=== PATIENT | female | born 1985 | race African-American/Black ===

== ENCOUNTER 2016-12-09 23:40 | Inpatient (IN) | payer MEDICAID, OTHER ==
[~2016-12-09] VITALS: Ht 160 cm; Wt 70.6 kg
[~2016-12-09 23:40] MED LIST: FLEX10TA PO; IBUP600T26 PO; Z.0.NO CURRENT MEDS
[2016-12-09 23:44] VITALS: BP 157/100; PULSE 83; RESP 14; TEMP 97.6; O2SAT 98
[2016-12-10] VITALS (9 sets, daily range): BP systolic 125–167; BP diastolic 62–99; PULSE 63–83; RESP 18; TEMP 97.9–98.4; O2SAT 97–100
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
[2016-12-10] MEDS ORDERED: SODIUM CHLORIDE 0.9% FLUSH 5 ML FLUSH IVF PRN (02:00)
--- NOTE | 2016-12-10 02:29 | RADRPT ---
EXAM DATE/TIME: 12/10/2016 02:06 [facility] COMPARISON: No previous studies available for comparison. INDICATIONS : Shortness of breath with chest pain earlier which resolved itself. MEDICAL HISTORY : None. SURGICAL HISTORY : None. ENCOUNTER: Initial ACUITY: 1 day PAIN SCORE: 0/10 LOCATION: Bilateral chest FINDINGS: A single view of the chest demonstrates the lungs to be symmetrically aerated without evidence of mas s, infiltrate or effusion. No evidence of pneumothorax. The cardiomediastinal contours are unremark able. Osseous structures are intact. CONCLUSION: The lungs are clear. Mele Hassan MD on December 10, 2016 at 2:27 Board Certified Radiologist. This report was verified electronically.
[2016-12-10 03:08] LABS: BETA HCG QUANT LESS THAN 1 MIU/ML (0-5); CREATINE KINASE 104 U/L (26-192)
[2016-12-10 03:15] LABS: ANION GAP 9 MEQ/L (5-15); BICARBONATE 24.3 MEQ/L (21.0-32.0); BLOOD UREA NITROGEN 8 MG/DL (7-18); CHLORIDE 110 MEQ/L (98-107); GLOMERULAR FILTRATION RATE 72 ML/MIN (>89); POTASSIUM 3.7 MEQ/L (3.5-5.1); SODIUM (NA) 143 MEQ/L (136-145)
[2016-12-10 03:20] LABS: CKMB LESS THAN 0.5 NG/ML (0.5-3.6)
[2016-12-10 03:25] LABS: APTT (PATIENT) 23.1 SEC (24.3-30.1); PROTHROMBIN TIME - PATIENT 10.6 SEC (9.8-11.6)
[2016-12-10 03:29] LABS: AUTOMATED NEUTROPHIL # 2.5 TH/MM3 (1.8-7.7); BASOPHIL % 0.5 % (0.0-2.0); EOSINOPHIL # 0.1 TH/MM3 (0-0.4); EOSINOPHIL % 1.6 % (0.0-4.0); HEMATOCRIT 33.6 % (35.0-46.0); HEMO FLAGS DIFF FINAL; LYMPH % 29.3 % (9.0-44.0); LYMPHOCYTE # 1.2 TH/MM3 (1.0-4.8); MEAN CELL VOLUME 84.3 FL (80.0-100.0); MEAN CORPUSCULAR HEMOGLOBIN 28.9 PG (27.0-34.0); MEAN CORPUSCULAR HGB CONC 34.3 % (32.0-36.0); MONO % 6.4 % (0.0-8.0); NEUT % 62.2 % (16.0-70.0); PLATELET COUNT 265 TH/MM3 (150-450); RED BLOOD COUNT 3.98 MIL/MM3 (4.00-5.30); RED CELL DISTRIBUTION WIDTH 14.6 % (11.6-17.2)
[2016-12-10] MEDS ORDERED: IOHEXOL 350 MG/ML 10 ML VIAL (for RAD DIAG) IV ONE (05:02)
--- NOTE | 2016-12-10 05:11 | RADRPT ---
EXAM DATE/TIME: 12/10/2016 04:50 [facility] COMPARISON: No previous studies available for comparison. INDICATIONS : Chest pain and elevated d-dimer; rule out pulmonary embolus. IV CONTRAST: 65 cc Omnipaque 350 (iohexol) IV RADIATION DOSE: 12.76 CTDIvol (mGy) MEDICAL HISTORY : None SURGICAL HISTORY : None. ENCOUNTER: Initial ACUITY: 1 day PAIN SCALE: 7/10 LOCATION: chest TECHNIQUE: Volumetric scanning of the chest was performed using a pulmonary embolism protocol MIP images were re constructed. Using automated exposure control and adjustment of the mA and/or kV according to patien t size, radiation dose was kept as low as reasonably achievable to obtain optimal diagnostic quality images. FINDINGS: PULMONARY ARTERIES: Abnormal. There are multiple filling defects confluent in the right interlobar pulmonary artery exte nding into 3 segmental pulmonary arteries. No filling defects seen in the main pulmonary artery, lef t or right pulmonary artery, are in the subsegmental arteries of the left lung. LUNGS: There is a focal area of opacity in the posterior lateral left lower lung in the costophrenic angle m easuring 2.2 x 1.0 cm. No focal opacities in the right lung. PLEURAE: There is no pleural thickening or pleural effusion. MEDIASTINUM: There is good visualization of the great vessels of the middle mediastinum. No evidence of mediastin al or hilar adenopathy/mass. CONCLUSION: 1. Study is positive for pulmonary embolism in the right interlobar artery extending into 3 subsegmen letty arteries. 2. 2 cm opacity in the posterolateral left costophrenic angle without associated pleural effusion sug gests possible infiltrate. Recommend followup CT scan in one month to evaluate for persistence or re solution. Mele Hassan MD on December 10, 2016 at 5:06 Board Certified Radiologist. This report was verified electronically.
[2016-12-10] MEDS ORDERED: ENOXAPARIN SODIUM 80 MG/0.8 ML SYRINGE SQ ONE (05:30)
[2016-12-10] MEDS ORDERED: SODIUM CHLOR 0.9% 1000 ML INJ 1,000 ML IV ONE (05:45)
[2016-12-10] MEDS ORDERED: ACETAMINOPHEN 325 MG TAB PO PRN (05:45)
[2016-12-10] MEDS ORDERED: SODIUM CHLORIDE 0.9% FLUSH 5 ML FLUSH FLUSH PRN (05:45)
[2016-12-10] MEDS ORDERED: ACETAMINOPHEN/HYDROcodone 325 MG/10 MG TAB PO PRN (05:45)
[2016-12-10] MEDS ORDERED: ONDANSETRON HCL 4 MG/2 ML VIAL IVP PRN (05:45)
[2016-12-10] MEDS ORDERED: BISACODYL 10 MG SUPP PR PRN (05:45)
[2016-12-10] MEDS ORDERED: RESP: ALBUTEROL 2.5 MG/IPRATROPIUM 0.5 MG NEB (PRN) NEB (05:45)
[2016-12-10] MEDS ORDERED: ACETAMINOPHEN/HYDROcodone 325 MG/5 MG TAB PO PRN (05:45)
[2016-12-10] MEDS: cefTRIAXone INJ 1,000 MG in SODIUM CHLORIDE 0.9% INJ 100 ML IV SCH (05:52)
[2016-12-10] MEDS: AZITHROMYCIN INJ 500 MG in SODIUM CHLOR 0.9% 250 ML INJ 250 ML IV SCH (07:02)
[2016-12-10] MEDS: SODIUM CHLORIDE 0.9% FLUSH 5 ML FLUSH FLUSH SCH ×2 (09:00→19:48)
[2016-12-10] MEDS: BUDESONIDE-FORMOTEROL 160/4.5 MCG INHALER INH SCH ×2 (09:00→20:57)
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
--- NOTE | 2016-12-10 14:13 | EKG ---
Date Performed: 12/10/2016 Time Performed: 00:25:56 PTAGE: 31 years EKG: SINUS BRADYCARDIA WITH SHORT FL INTERVAL BORDERLINE ECG NO PREVIOUS TRACING DOCTOR: Ronal Almonte Interpretating Date/Time 12/10/2016 14:11:40
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
[2016-12-10] MEDS: ENOXAPARIN SODIUM 80 MG/0.8 ML SYRINGE SQ SCH (18:27)
[2016-12-11] VITALS: BP 136/67; PULSE 77; RESP 18; TEMP 98.1; O2SAT 99
[2016-12-11 04:00] VITALS: BP 141/77; PULSE 61; RESP 16; TEMP 97.8; O2SAT 100
[2016-12-11] MEDS: cefTRIAXone INJ 1,000 MG in SODIUM CHLORIDE 0.9% INJ 100 ML IV SCH (05:31)
[2016-12-11] MEDS: ENOXAPARIN SODIUM 80 MG/0.8 ML SYRINGE SQ SCH (05:31)
[2016-12-11] MEDS: AZITHROMYCIN INJ 500 MG in SODIUM CHLOR 0.9% 250 ML INJ 250 ML IV SCH (05:31)
[2016-12-11 08:00] VITALS: PULSE 74
[2016-12-11 08:06] VITALS: BP 126/58; PULSE 83; RESP 18; TEMP 98.3; O2SAT 98
[2016-12-11 08:22] LABS: AUTOMATED NEUTROPHIL # 1.5 TH/MM3 (1.8-7.7); BASOPHIL % 0.7 % (0.0-2.0); EOSINOPHIL # 0.1 TH/MM3 (0-0.4); EOSINOPHIL % 1.7 % (0.0-4.0); LYMPH % 41.8 % (9.0-44.0); LYMPHOCYTE # 1.3 TH/MM3 (1.0-4.8); MEAN CELL VOLUME 84.8 FL (80.0-100.0); MEAN CORPUSCULAR HEMOGLOBIN 29.9 PG (27.0-34.0); MEAN CORPUSCULAR HGB CONC 35.3 % (32.0-36.0); MONO % 7.6 % (0.0-8.0); NEUT % 48.2 % (16.0-70.0); PLATELET COUNT 229 TH/MM3 (150-450); RED BLOOD COUNT 3.31 MIL/MM3 (4.00-5.30); WHITE BLOOD COUNT 3.1 TH/MM3 (4.0-11.0)
[2016-12-11 08:47] LABS: ALT (GPT) 22 U/L (10-53); ANION GAP 8 MEQ/L (5-15); AST (GOT) 13 U/L (15-37); BLOOD UREA NITROGEN 5 MG/DL (7-18); CHLORIDE 110 MEQ/L (98-107); GLOMERULAR FILTRATION RATE 96 ML/MIN (>89); POTASSIUM 3.4 MEQ/L (3.5-5.1); SODIUM (NA) 144 MEQ/L (136-145)
[2016-12-11 08:51] LABS: HEMO FLAGS DIFF FINAL
[2016-12-11 08:54] LABS: ALKALINE PHOSPHATASE 49 U/L (45-117); TOTAL BILIRUBIN ADULT 0.5 MG/DL (0.2-1.0)
[2016-12-11] MEDS ORDERED: XARE15TA PO ×2 (09:41→11:43)
--- NOTE | 2016-12-11 10:20 | PD.ONC.PN ---
Subjective Subjective Remarks Afebrile overnight. Patient resting comfortably. She still has some chest pain with deep breath. No other complaints. Objective Data Date Time Temp Pulse Resp B/P Pulse Ox O2 Delivery O2 Flow Rate FiO2 12/11/16 08:06 98.3 83 18 126/58 98 12/11/16 04:00 97.8 61 16 141/77 100 12/11/16 00:00 98.1 77 18 136/67 99 12/10/16 20:11 64 12/10/16 20:00 Room Air 12/10/16 20:00 98.0 78 18 135/99 99 12/10/16 20:00 72 12/10/16 16:00 98.4 72 18 133/62 98 12/10/16 12:00 97.9 80 18 155/79 97 Result Diagram: 12/11/1627 12/11/16626 Laboratory Results Laboratory Tests Test 12/10/16 12/10/16 12/11/16 10:30 17:55 06:27 Troponin I LESS THAN 0.02 LESS THAN 0.02 NG/ML NG/ML White Blood Count 3.1 TH/MM3 Red Blood Count 3.31 MIL/MM3 Hemoglobin 9.9 GM/DL Hematocrit 28.0 % Mean Corpuscular Volume 84.8 FL Mean Corpuscular Hemoglobin 29.9 PG Mean Corpuscular Hemoglobin 35.3 % Concent Red Cell Distribution Width 15.0 % Platelet Count 229 TH/MM3 Mean Platelet Volume 8.2 FL Neutrophils (%) (Auto) 48.2 % Lymphocytes (%) (Auto) 41.8 % Monocytes (%) (Auto) 7.6 % Eosinophils (%) (Auto) 1.7 % Basophils (%) (Auto) 0.7 % Neutrophils # (Auto) 1.5 TH/MM3 Lymphocytes # (Auto) 1.3 TH/MM3 Monocytes # (Auto) 0.2 TH/MM3 Eosinophils # (Auto) 0.1 TH/MM3 Basophils # (Auto) 0.0 TH/MM3 CBC Comment DIFF FINAL Differential Comment Sodium Level 144 MEQ/L Potassium Level 3.4 MEQ/L Chloride Level 110 MEQ/L Carbon Dioxide Level 26.0 MEQ/L Anion Gap 8 MEQ/L Blood Urea Nitrogen 5 MG/DL Creatinine 0.84 MG/DL Estimat Glomerular Filtration 96 ML/MIN Rate Random Glucose 85 MG/DL Calcium Level 8.5 MG/DL Total Bilirubin 0.5 MG/DL Aspartate Amino Transf 13 U/L (AST/SGOT) Alanine Aminotransferase 22 U/L (ALT/SGPT) Alkaline Phosphatase 49 U/L Total Protein 6.1 GM/DL Albumin 3.2 GM/DL Administered Medications Medications (Trade) Dose Ordered Sig/Per Route PRN Reason Start Time Stop Time Status Last Admin Dose Admin Ceftriaxone Sodium 1000 mg/ Sodium Chloride 100 ml @ 200 mls/hr Q24H IV 12/10/16 06:00 12/11/16 05:31 Azithromycin/ Sodium Chloride (Zithromax Inj/ NS 250 ml Inj) 250 ml @ 250 mls/hr Q24H IV 12/10/16 06:00 12/11/16 05:31 Budesonide/ Formoterol Fumarate (Symbicort 160-4.5 Inh) 2 puff Q12HR INH 12/10/16 09:00 12/10/16 20:57 Enoxaparin Sodium (Lovenox Inj) 70 mg Q12H SQ 12/10/16 18:00 12/11/16 05:31 Objective Remarks GENERAL: Young woman, sitting up in bed in nad. SKIN: Warm and dry. HEAD: Normocephalic. EYES: No injection or drainage. NECK: Supple, trachea midline. CARDIOVASCULAR: Regular rate and rhythm RESPIRATORY: Breath sounds equal bilaterally. No accessory muscle use. GASTROINTESTINAL: Abdomen soft, non-tender, nondistended. EXTREMITIES: No cyanosis NEUROLOGICAL: awake and alert, normal speech. Assessment/Plan Assessment 31y/o female admitted with PE h/o DVT Plan 1. continue Lovenox 2. I wrote Rx for Xarelto and asked case management to find out if it will be covered by her insurance--once we know its covered, patient can be switched to Xarelto and discharged from hematology standpoint. 3. FS faxed to new patient referrals for follow up in 6-8 weeks Attending Statement The exam, history, and the medical decision-making described in the above note were completed with the assistance of the mid-level provider. I reviewed and agree with the findings presented. I attest that I had a [id number] encounter with the patient on the same day, and personally performed and documented my assessment and findings in the medical record. Nyasia Cruz Dec 11, 2016 10:20 Baldev Mancuso MD Dec 12, 2016 00:17
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
[2016-12-11] MEDS ORDERED: CEFT500T3 PO (10:48)
[2016-12-11] MEDS ORDERED: VENTAER INH (10:48)
[2016-12-11] MEDS ORDERED: ZITH250T PO (10:48)
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
[2016-12-11 12:07] VITALS: BP 139/83; PULSE 67; RESP 18; TEMP 98; O2SAT 99
[2016-12-16 03:52] LABS: BETA2 GLYCOPROTEIN I AB IGA LESS THAN 9.0 SAU (< OR = 20)
== END 2016-12-11 15:11 | disposition home or self-care (01) | DRG 175 ==
LOC: NEPE 23:40 → NEDA 12-10 05:27 → N04A 12-10 08:20
PROVIDERS: ADMIT Internal Medicine; ATTEND Internal Medicine
DX: I26.99 Other pulmonary embolism without acute cor pulmonale (principal); J18.9 Pneumonia, unspecified organism; Z86.718 Personal history of other venous thrombosis and embolism
CPT/HCPCS: 71010; 71275; 80048; 80053; 81240; 81241; 82550; 82552; 83090; 83735; 84484; 84702; 85025; 85379; 85610; 85613; 85730; 86038; 86147; 93005; J0456; J0696; J1650; J7030; J7050; Q9967